=== PATIENT | male | born 1975 | race African-American/Black ===

== ENCOUNTER 2018-03-17 17:11 | Emergency (ER) | payer OTHER ==
[2018-03-17] MEDS ORDERED: DIPH,PERTUS(ACELL)TETVAC-LF 0.5 ML VIAL IM ONE (17:23)
[2018-03-17] MEDS ORDERED: diphenhydrAMINE 50 MG/ML 1 ML VIAL IVP STA (17:36)
[2018-03-17] MEDS ORDERED: HALOPERIDOL LACTATE 5 MG/ML 1 ML VIAL IM STA (17:36)
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
[2018-03-17 18:36] LABS: Basophils % (A) 0 %; Eosinophils # (A) 0.2 k/uL (0-0.7); Eosinophils % (A) 4 %; HGB 15.2 gm/dL (13.0-17.5); Lymphocytes # (A) 0.9 k/uL (1.0-4.8); Lymphocytes % (A) 16 %; MCH 29.2 pg (25.0-35.0); MCHC 33.8 g/dL (31.0-37.0); MCV 86.5 fL (80.0-100.0); Mean Platelet Volume 6.9; Monocytes # (A) 0.3 k/uL (0-1.0); Monocytes % (A) 5 %; Neutrophils # (A) 4.4 k/uL (1.3-7.7); Neutrophils % (A) 74 %; Platelet Count 259 k/uL (150-450); RBC 5.21 m/uL (4.30-5.90); RDW 12.7 % (11.5-15.5); WBC 5.9 k/uL (3.8-10.6)
[2018-03-17 18:47] LABS: ALT 63 U/L (21-72); AST 46 U/L (17-59); Albumin 4.5 g/dL (3.5-5.0); Alkaline Phosphatase 60 U/L (38-126); Anion Gap 16 mmol/L; Blood Urea Nitrogen 9 mg/dL (9-20); Calcium 9.2 mg/dL (8.4-10.2); Carbon Dioxide 22 mmol/L (22-30); Chloride 103 mmol/L (98-107); Glucose 94 mg/dL (74-99); Potassium 3.7 mmol/L (3.5-5.1); Sodium 141 mmol/L (137-145); Total Bilirubin 0.4 mg/dL (0.2-1.3); Total Protein 6.8 g/dL (6.3-8.2)
[2018-03-17 18:49] LABS: Alcohol 229 mg/dL
[2018-03-17 18:51] LABS: Prothrombin Time 9.9 sec (9.0-12.0)
[2018-03-17 18:53] LABS: Partial Thromboplastin Time 21.1 sec (22.0-30.0)
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
[2018-03-17 20:47] VITALS: BP 129/78; PULSE 77; RESP 18; TEMP 98
== END 2018-03-17 20:47 | disposition home or self-care (01) ==
LOC: EC 17:11
DX: S02.2XXA Fracture of nasal bones, initial encounter for closed fracture (principal); S01.511A Laceration without foreign body of lip, initial encounter; S09.93XA Unspecified injury of face, initial encounter; R45.5 Hostility; F17.200 Nicotine dependence, unspecified, uncomplicated; Z23 Encounter for immunization; Y00.XXXA Assault by blunt object, initial encounter; Y92.89 Other specified places as the place of occurrence of the external cause; Y90.7 Blood alcohol level of 200-239 mg/100 ml
CPT/HCPCS: 36415; 80053; 85025; 85610; 85730; 80320; 72125; 70486; 70450; 90715; 99285; 40650; 96374; 96372; 90471; J1200; J1630

== ENCOUNTER 2018-03-17 21:49 | Emergency (ER) | payer OTHER ==
[2018-03-17 21:55] VITALS: BP 118/75; PULSE 71; RESP 20; TEMP 98
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
== END 2018-03-17 22:07 | disposition home or self-care (01) ==
LOC: EC 21:49
DX: Z02.89 Encounter for other administrative examinations (principal); F17.200 Nicotine dependence, unspecified, uncomplicated
CPT/HCPCS: 99282

== ENCOUNTER 2020-11-02 16:08 | Observation (INO) | payer OTHER ==
[2020-11-02] MEDS ORDERED: NITROGLYCERIN OINT 1 INCH/GM PACKET TOPICAL STA (16:41)
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
[2020-11-02 16:59] LABS: Basophils % (A) 0 %; Eosinophils # (A) 0.1 k/uL (0-0.7); Eosinophils % (A) 2 %; HCT 43.3 % (39.0-53.0); HGB 15.2 gm/dL (13.0-17.5); Lymphocytes % (A) 13 %; MCH 28.9 pg (25.0-35.0); MCHC 35.2 g/dL (31.0-37.0); MCV 82.1 fL (80.0-100.0); Mean Platelet Volume 7.1; Monocytes # (A) 0.3 k/uL (0-1.0); Monocytes % (A) 5 %; Neutrophils # (A) 5.8 k/uL (1.3-7.7); Neutrophils % (A) 79 %; Platelet Count 239 k/uL (150-450); RBC 5.27 m/uL (4.30-5.90); RDW 12.4 % (11.5-15.5); WBC 7.3 k/uL (3.8-10.6)
--- NOTE | 2020-11-02 17:07 | XR ---
EXAMINATION TYPE: XR chest 2V DATE OF EXAM: 11/02/2020 COMPARISON: NONE HISTORY: Chest pain TECHNIQUE: FINDINGS: Heart and mediastinum are normal. Lungs are clear. Diaphragm is normal. Bony thorax appears normal. IMPRESSION: Normal chest. Normal heart.
[2020-11-02 17:08] LABS: ALT 42 U/L (4-49); AST 35 U/L (17-59); African American GFR (CKD) >90 (>60 ml/min/1.73 sqM); Albumin 4.2 g/dL (3.5-5.0); Alkaline Phosphatase 66 U/L (38-126); Anion Gap 7 mmol/L; Blood Urea Nitrogen 8 mg/dL (9-20); Calcium 9.1 mg/dL (8.4-10.2); Carbon Dioxide 25 mmol/L (22-30); Chloride 106 mmol/L (98-107); Glucose 157 mg/dL (74-99); Magnesium 1.8 mg/dL (1.6-2.3); Non-African American GFR(CKD) >90 (>60 ml/min/1.73 sqM); Sodium 138 mmol/L (137-145); Total Bilirubin 0.5 mg/dL (0.2-1.3); Total Protein 7.1 g/dL (6.3-8.2)
[2020-11-02 17:12] LABS: Prothrombin Time 10.3 sec (9.0-12.0)
[2020-11-02 17:28] LABS: Partial Thromboplastin Time 20.3 sec (22.0-30.0)
[2020-11-02] MEDS ORDERED: HEPARIN SODIUM,PORCINE 5,000 UNIT/ML 1 ML VIAL IV ONE (17:42)
[2020-11-02] MEDS ORDERED: HEPARIN SOD,PORK IN 0.45% NACL 25,000 UNIT in 0.45% NACL 1 250ML.BAG IV SCH (17:45)
[2020-11-02] MEDS ORDERED: NITROGLYCERIN SL TABS 0.4 MG TAB SUBLINGUAL PRN (17:45)
[2020-11-02] MEDS: NITROGLYCERIN OINT 1 INCH/GM PACKET TOPICAL SCH (18:14)
[2020-11-02] MEDS ORDERED: ACETAMINOPHEN TAB 500 MG TAB PO STA (18:56)
[2020-11-02] MEDS ORDERED: ACETAMINOPHEN TAB 325 MG TAB PO PRN (18:57)
[2020-11-02 22:45] VITALS: RESP 16
[2020-11-03] MEDS: NITROGLYCERIN OINT 1 INCH/GM PACKET TOPICAL SCH ×2 (01:20→05:48)
[2020-11-03 03:21] LABS: Cholesterol 169 mg/dL (<200); HDL Cholesterol 51 mg/dL (40-60); LDL Cholesterol,Calculated 92 mg/dL (0-99); Triglycerides 132 mg/dL (<150)
[2020-11-03] MEDS ORDERED: ASPIRIN 325 MG TAB PO SCH (09:00)
[2020-11-03] MEDS ORDERED: ASPIRIN 81 MG PO SCH (09:00)
--- NOTE | 2020-11-03 10:34 | P.CRDCN ---
History of Present Illness History of present illness: CHIEF COMPLAINT: Chest pain HISTORY OF PRESENT ILLNESS: This is a 45-year-old male with a past medical history significant for nicotine dependence. Patient does not follow with a acid conditioner. We have been asked to see the patient in consultation for chest pain. Patient is currently incarcerated. He was examined at the bedside with a shift present. Patient states yesterday he began having a squeezing/pinching sensation in the left side of his chest while he was laying down. He states the pain radiated into his left arm. He reports feeling nauseated, short of breath, and lightheaded at that time. He states the pain was worse with exertion. He denied increased pain with inspiration or palpation of chest wall. At the time of examination this morning, the patient is chest pain-free. The patient reports significant family history of heart disease. He states his dad had a heart attack and when he was in his 60s. He reports his mom and sister had stents placed before the age of 60. DIAGNOSTICS: EKG reveals sinus rhythm with no signs of acute ischemia Chest xray negative for acute process Laboratory data: WBC 7.3. Hemoglobin 15.2. Platelet count 239. Sodium 138. Potassium 4.0. BUN 8. Creatinine 0.95. Magnesium 1.8. Troponin negative 3 Current home cardiac medications include none REVIEW OF SYSTEMS: At the time of my exam: CONSTITUTIONAL: Denies fever or chills. HEENT: Denies blurred vision, vision changes, or eye pain. Denies hemoptysis CARDIOVASCULAR: Denies chest pain, orthopnea, PND or palpitations RESPIRATORY: No shortness of breath. GASTROINTESTINAL: Denies abdominal pain. Denies nausea or vomiting. HEMATOLOGIC: Denies bleeding disorders. GENITOURINARY: Denies any blood in urine. SKIN: Denies pruitis. Denies rash. PHYSICAL EXAM: VITAL SIGNS: Reviewed. GENERAL: Well-developed in no acute distress. HEENT: Head is normocephalic. Pupils are equal, round. Sclerae anicteric. Mucous membranes of the mouth are moist. Neck supple. No JVD or thyromegaly LUNGS: Respirations even and unlabored. Lungs essentially clear to auscultation bilaterally. HEART: Regular rate and rhythm. S1 and S2 heard. ABDOMEN: Soft. Nondistended. Nontender. EXTREMITIES: Normal range of motion. No clubbing or cyanosis. Peripheral pulses intact. No lower extremity edema NEUROLOGIC: Awake and alert. Oriented x 3. ASSESSMENT: Chest pain, troponins negative 3 Nicotine dependence Family history of premature coronary artery disease PLAN: Discontinue IV heparin Discontinue nitro Obtain 2-D echo to assess cardiac structure and function Patient to undergo stress echocardiogram today to assess for reversible ischemia. If stress test is negative, the patient may be discharged today from a cardiac standpoint. Nurse practitioner note has been reviewed by physician. Signing provider agrees with the documented findings, assessment, and plan of care. Past Medical History Past Medical History: No Reported History History of Any Multi-Drug Resistant Organisms: None Reported Past Surgical History: No Surgical Hx Reported Past Anesthesia/Blood Transfusion Reactions: No Reported Reaction Past Psychological History: No Psychological Hx Reported Smoking Status: Current every day smoker Past Alcohol Use History: Abuse, Daily, Heavy Past Drug Use History: Cocaine, Marijuana Medications and Allergies Home Medications Medication Instructions Recorded Confirmed Type No Known Home Medications 11/02/20 11/02/20 History Allergies Allergy/AdvReac Type Severity Reaction Status Date / Time No Known Allergies Allergy Verified 11/02/20 18:28 Physical Exam Vitals: Vital Signs Temp Pulse Pulse Pulse Resp BP BP 11/03/20 08:09 98.0 F 54 L 16 127/83 11/03/20 03:00 97.8 F 56 L 16 113/69 11/02/20 21:00 98.6 F 74 16 114/57 11/02/20 18:16 98 F 68 18 105/60 11/02/20 18:13 98.2 F 67 16 105/62 11/02/20 17:08 72 18 117/60 11/02/20 16:21 98.2 F 75 18 124/78 Pulse Ox 11/03/20 08:09 100 11/03/20 03:00 100 11/02/20 21:00 98 11/02/20 18:16 100 11/02/20 18:13 100 11/02/20 17:08 100 11/02/20 16:21 100 Intake and Output 11/02/20 11/03/20 11/03/20 22:59 06:59 14:59 Intake Total 10 87.167 Balance 10 87.167 Intake: Intake, IV Titration 10 87.167 Amount Heparin Sod,Pork in 0.45% 10 87.167 NaCl 25,000 unit In 0.45 % NaCl 1 250ml.bag @ 11. 023 UNITS/KG/HR 10 mls/hr IV .Q24H [facility] Rx#: [id number] Other: Voiding Method Toilet Toilet # Voids 1 1 Weight 90.718 kg Results 11/02/20 16:47 11/02/20 16:47 Cardiac Enzymes 11/02/20 11/02/20 11/02/20 Range/Units 16:47 16:47 19:39 AST 35 (17-59) U/L Troponin I <0.012 <0.012 (0.000-0.034) ng/mL 11/02/20 Range/Units 23:57 AST (17-59) U/L Troponin I <0.012 (0.000-0.034) ng/mL Coagulation 11/02/20 11/02/20 Range/Units 16:47 23:57 PT 10.3 (9.0-12.0) sec APTT 20.3 L 59.5 H (22.0-30.0) sec Lipids 11/02/20 Range/Units 16:47 Triglycerides 132 (<150) mg/dL Cholesterol 169 (<200) mg/dL HDL Cholesterol 51 (40-60) mg/dL CBC 11/02/20 Range/Units 16:47 WBC 7.3 (3.8-10.6) k/uL RBC 5.27 (4.30-5.90) m/uL Hgb 15.2 (13.0-17.5) gm/dL Hct 43.3 (39.0-53.0) % Plt Count 239 (150-450) k/uL Comprehensive Metabolic Panel 11/02/20 Range/Units 16:47 Sodium 138 (137-145) mmol/L Potassium 4.0 (3.5-5.1) mmol/L Chloride 106 (98-107) mmol/L Carbon Dioxide 25 (22-30) mmol/L BUN 8 L (9-20) mg/dL Creatinine 0.95 (0.66-1.25) mg/dL Glucose 157 H (74-99) mg/dL Calcium 9.1 (8.4-10.2) mg/dL AST 35 (17-59) U/L ALT 42 (4-49) U/L Alkaline Phosphatase 66 (38-126) U/L Total Protein 7.1 (6.3-8.2) g/dL Albumin 4.2 (3.5-5.0) g/dL Current Medications Generic Name Dose Route Start Last Admin Trade Name Freq PRN Reason Stop Dose Admin Acetaminophen 650 mg 11/02/20 18:57 Acetaminophen Tab 325 Mg Tab PO Q4HR PRN Fever and/ or Pain Aspirin 81 mg 11/03/20 09:00 11/03/20 08:12 Aspirin 81 Mg PO 81 mg DAILY TORIE Administration Nitroglycerin 0.4 mg 11/02/20 17:45 Nitroglycerin Sl Tabs 0.4 Mg Tab SUBLINGUAL Q5M PRN Chest Pain Intake and Output 11/02/20 11/03/20 11/03/20 22:59 06:59 14:59 Intake Total 10 87.167 Balance 10 87.167 Intake: Intake, IV Titration 10 87.167 Amount Heparin Sod,Pork in 0.45% 10 87.167 NaCl 25,000 unit In 0.45 % NaCl 1 250ml.bag @ 11. 023 UNITS/KG/HR 10 mls/hr IV .Q24H [facility] Rx#: [id number] Other: Voiding Method Toilet Toilet # Voids 1 1 Weight 90.718 kg 11/02/20 16:47 11/02/20 16:47
[2020-11-03 14:59] VITALS: BP 131/83; PULSE 70; TEMP 98.3
--- NOTE | 2020-11-03 17:48 | P.STRESS ---
- Stress Test Note Stress Test Results/Findings: Exam Performed: stress echo exercise Exam Date: 11/03/20 Reason for Exam: CP Height: 5 ft 9 in Weight: 90.72 kg Protocol: STRESS ECHO Stage: 4 Duration of Exercise: 9:33 Resting Heart Rate: 58 Resting Blood Pressure: 129/84 Maximum Achieved Heart Rate: 143 Maximum Achieved Blood Pressure: 184/83 85% PMHR: 150 100% PMHR: 176 METS: 11.1 Technologist Comment: Stress Test Results/Findings: Baseline heart rate 58 beats a minute, Baseline blood pressure 129/84 mmHg Baseline 12-lead ECG shows sinus rhythm normal [place] narrow QRS normal ST segments Patient exercised on a Oliver protocol for 9 minutes 33 seconds achieving a peak heart rate of 117 beats a minute. Normal blood pressure response to exercise There was no ECG evidence of ischemia Baseline 2-D echo may showed normal LV systolic function without segmental wall motion abnormalities. Definity contrast was used At peak exercise there was excellent augmentation of overall LV contractility without development only for motion abnormalities At recovery reason for clinic systolic function remained normal Impression Good exercise capacity No ECG or echocardiographic evidence for ischemia
--- NOTE | 2020-11-03 18:43 | ECHOF ---
Referral Reason:chest pain MEASUREMENTS -------- HEIGHT: 175.3 cm WEIGHT: 90.7 kg BP: 113/69 IVSd: 1.0 cm (0.6 - 1.1) LVIDd: 4.8 cm (3.9 - 5.3) LVPWd: 0.9 cm (0.6 - 1.1) IVSs: 1.5 cm LVIDs: 3.1 cm LVPWs: 1.8 cm LA Diam: 3.7 cm (2.7 - 3.8) RVIDd: 3.1 cm (< 3.3) LAESV Index (A-L): 25.07 ml/m Ao Diam: 2.9 cm (2.0 - 3.7) AV Cusp: 2.1 cm (1.5 - 2.6) EPSS: 0.6 cm MV E Theron: 0.85 m/s MV DecT: 243 ms MV A Theron: 0.84 m/s MV E/A Ratio: 1.02 RAP: 5.00 mmHg RVSP: 21.84 mmHg MV EF SLOPE: 129.59 mm/s (70 - 150) MV EXCURSION: 18.22 mm (> 18.000) FINDINGS -------- Sinus rhythm. This was a technically good study. The left ventricular size is normal. Left ventricular wall thickness is normal. Overall left vent ricular systolic function is normal with, an EF between 60 - 65 %. The right ventricle is normal in size. Normal LA size by volume 22+/-6 ml/m2. The right atrium is normal in size. Interatrial and interventricular septum intact. The aortic valve is trileaflet and appears structurally normal. There is trace mitral regurgitation. The tricuspid valve appears structurally normal. Trace/mild (physiologic) pulmonic regurgitation. The aortic root size is normal. Normal inferior vena cava with normal inspiratory collapse consistent with estimated right atrial pre ssure of 5 mmHg. The inferior vena cava is mildly dilated. There is no pericardial effusion. CONCLUSIONS -------- 1. The left ventricular size is normal. 2. Left ventricular wall thickness is normal. 3. Overall left ventricular systolic function is normal with, an EF between 60 - 65 %. 4. There is trace mitral regurgitation. 5. Trace/mild (physiologic) pulmonic regurgitation. 6. The inferior vena cava is mildly dilated. 7. There is no pericardial effusion. FINISHED GOODS STOCK CLERK: Jessica Steele RDCS
--- NOTE | 2020-11-07 08:25 | P.HPIM ---
History of Present Illness H&P Date: 11/03/20 Chief Complaint: chest pain Lewis Vanegas is a 45 yo M with PMH for tobacco abuse who presented to the ED after he noticed a squeezing/pinching sensation in the left side of his chest while he was laying down. Patient is currently incarcerated. Pt states yesterday he was resting when he noticed this discomfort, He states the pain radiated into his left arm. He reports feeling nauseated, short of breath, and lightheaded at that time. He denied increased pain with inspiration or palpation of chest wall. At the time of examination this morning, the patient is chest pain-free. The patient reports significant family history of heart disease. He states his dad had a heart attack and when he was in his 60s. He reports his mom and sister had stents placed before the age of 60. On presentation his vitals were stable, EKG NSR and trop negative x3. Review of Systems All systems: negative Constitutional: Denies chills, Denies fever Eyes: denies blurred vision, denies pain Ears, nose, mouth and throat: Denies headache, Denies sore throat Cardiovascular: Reports chest pain, Denies shortness of breath Respiratory: Denies cough Gastrointestinal: Denies abdominal pain, Denies diarrhea, Denies nausea, Denies vomiting Musculoskeletal: Denies myalgias Integumentary: Denies pruritus, Denies rash Neurological: Denies numbness, Denies weakness Psychiatric: Denies anxiety, Denies depression Endocrine: Denies fatigue, Denies weight change Past Medical History Past Medical History: No Reported History History of Any Multi-Drug Resistant Organisms: None Reported Past Surgical History: No Surgical Hx Reported Past Anesthesia/Blood Transfusion Reactions: No Reported Reaction Past Psychological History: No Psychological Hx Reported Smoking Status: Current every day smoker Past Alcohol Use History: Abuse, Daily, Heavy Past Drug Use History: Cocaine, Marijuana Medications and Allergies Home Medications Medication Instructions Recorded Confirmed Type No Known Home Medications 11/02/20 11/02/20 History Allergies Allergy/AdvReac Type Severity Reaction Status Date / Time No Known Allergies Allergy Verified 11/02/20 18:28 Physical Exam General: well developed, well nourished male in NAD HEENT: normocephalic, atraumatic, mucus membranes moist CV: RRR, no murmur Lungs: clear throughout, normal effort Abd: soft, nontender, non distended Neuro: alert and oriented x3 Skin: warm and dry Results CBC & Chem 7: 11/02/20 16:47 11/02/20 16:47 Thrombosis Risk Factor Assmnt - Choose All That Apply Each Factor Represents 1 point: Age 41-60 years Thrombosis Risk Factor Assessment Total Risk Factor Score: 1 Thrombosis Risk Factor Assessment Level: Low Risk Assessment and Plan (1) Unstable angina pectoris Status: Acute Code(s): I20.0 - UNSTABLE ANGINA SNOMED Code(s): 4363124 Plan: 1. Chest pain. ACS ruled out. Cardiology consulted for further evaluation. Stress test pending
--- NOTE | 2020-11-07 08:27 | P.DS ---
Providers Date of admission: 11/02/20 17:45 Expected date of discharge: 11/03/20 Attending physician: Andrea Anders MD Consults: 11/02/20 17:45 Consult Physician Urgent Consulting Provider: [facility] Consult Reason/Comments: Unstable angina Do you want consulting provider notified?: Yes Primary care physician: Chantell Anders - Discharge Diagnosis(es) (1) Unstable angina pectoris Status: Acute Hospital Course: Lewsi Vanegas is a 45 yo M with PMH for tobacco abuse who presented to the ED after he noticed a squeezing/pinching sensation in the left side of his chest while he was laying down. Patient is currently incarcerated. Pt states yesterday he was resting when he noticed this discomfort, He states the pain radiated into his left arm. He reports feeling nauseated, short of breath, and lightheaded at that time. He denied increased pain with inspiration or palpation of chest wall. At the time of examination this morning, the patient is chest pain-free. The patient reports significant family history of heart disease. He states his dad had a heart attack and when he was in his 60s. He reports his mom and sister had stents placed before the age of 60. On presentation his vitals were stable, EKG NSR and trop negative x3. Pt was admitted to medicine and seen by Cardiology. He did undergo stress test and echo which were negative for ischemic changes. He is discharged in stable condition and recommended to follow up with his physician and tobacco cessation counseling is encouraged. Plan - Discharge Summary Discharge Rx Participant: No New Discharge Prescriptions: No Action No Known Home Medications Discharge Medication List No Known Home Medications 11/02/20 [History] Follow up Appointment(s)/Referral(s): Josh Song MD [STAFF PHYSICIAN] - 2 Weeks Chantell Anders DO [Primary Care Provider] - 1-2 days Discharge Disposition: OTHER INSTITUTION NOT DEFINED
--- NOTE | 2020-11-07 09:04 | ECHOS ---
Stress Test Results/Findings: Exam Performed: stress echo exercise Exam Date: 11/03/20 Reason for Exam: CP Height: 5 ft 9 in Weight: 90.72 kg Protocol: STRESS ECHO Stage: 4 Duration of Exercise: 9:33 Resting Heart Rate: 58 Resting Blood Pressure: 129/84 Maximum Achieved Heart Rate: 143 Maximum Achieved Blood Pressure: 184/83 85% PMHR: 150 100% PMHR: 176 METS: 11.1 Technologist Comment: Stress Test Results/Findings: Baseline heart rate 58 beats a minute, Baseline blood pressure 129/84 mmHg Baseline 12-lead ECG shows sinus rhythm normal [place] narrow QRS normal ST segments Patient exercised on a Oliver protocol for 9 minutes 33 seconds achieving a peak heart rate of 117 beats a minute. Normal blood pressure response to exercise There was no ECG evidence of ischemia Baseline 2-D echo may showed normal LV systolic function without segmental wall motion abnormalities. Definity contrast was used At peak exercise there was excellent augmentation of overall LV contractility without development only for motion abnormalities At recovery reason for clinic systolic function remained normal Impression Good exercise capacity No ECG or echocardiographic evidence for ischemia MTDD
== END 2020-11-03 18:11 | disposition other institution (70) ==
LOC: EC 16:08 → SUPCPDRO 16:08 → 1SOBS 17:45
PROVIDERS: ADMIT Family Medicine; ATTEND Family Medicine
DX: I20.0 Unstable angina (principal); F17.200 Nicotine dependence, unspecified, uncomplicated; Z82.49 Family history of ischemic heart disease and other diseases of the circulatory system; F10.11 Alcohol abuse, in remission
CPT/HCPCS: 93005 ×2; 96366 ×2; 96376; 96365; 99291; 36415; 93306; 93351; 80061; 80053; 83735; 84484; 85025; 85610; 85730; 71046; G0378 ×2; J1644 ×2

== ENCOUNTER 2023-12-12 10:57 | Emergency (ER) | payer BC, OTHER ==
[2023-12-12 11:32] VITALS: RESP 18
--- NOTE | 2023-12-12 11:47 | XR ---
EXAMINATION TYPE: XR chest 2V DATE OF EXAM: 12/12/2023 11:32 AM CLINICAL INDICATION:Male, 48 years old with history of cough; COMPARISON: Chest radiographs from 11/02/2020. TECHNIQUE: XR chest 2V Frontal and lateral views of the chest. FINDINGS: Lungs/Pleura: There is no evidence of pleural effusion, focal consolidation, or pneumothorax. Pulmonary vascularity: Unremarkable. Heart/mediastinum: Cardiomediastinal silhouette is unremarkable. Musculoskeletal: No acute osseous pathology. Other findings: None IMPRESSION: No acute cardiopulmonary disease/process.
--- NOTE | 2023-12-12 11:59 | ED ---
URI HPI - General Chief Complaint: Upper Respiratory Infection Stated Complaint: Cough, flu like symptoms Time Seen by Provider: 12/12/23 11:25 Source: patient, RN notes reviewed Mode of arrival: ambulatory Limitations: no limitations - History of Present Illness Initial Comments: This is a 48-year-old male who presents to the emergency department for co ughing, congestion, and shortness of breath. Symptoms started 2-3 weeks ago. For about a week he has been on steroids and azithromycin, with no improvement in symptoms. States that he is now coughing so much that he makes himself vomit. Denies any fevers or chills. Denies any history of asthma, COPD, or other respiratory illnesses. MD Complaint: cough, nasal congestion - Related Data Previous Rx's Medication Instructions Recorded Albuterol Sulfate [Albuterol 1 puff PO Q4-6H PRN #8.5 gm 12/12/23 Sulfate Hfa] Benzonatate [Tessalon Perle] 200 mg PO TID PRN #30 capsule 12/12/23 Ondansetron Odt [Zofran Odt] 4 mg PO Q8HR PRN #15 tab 12/12/23 Allergies Allergy/AdvReac Type Severity Reaction Status Date / Time No Known Allergies Allergy Verified 12/12/23 11:10 Review of Systems ROS Statement: Those systems with pertinent positive or pertinent negative responses have been documented in the HPI. ROS Other: All systems not noted in ROS Statement are negative. Past Medical History Past Medical History: No Reported History History of Any Multi-Drug Resistant Organisms: None Reported Past Surgical History: No Surgical Hx Reported Past Anesthesia/Blood Transfusion Reactions: No Reported Reaction Past Psychological History: No Psychological Hx Reported Smoking Status: Current every day smoker Past Alcohol Use History: Abuse, Daily, Heavy Past Drug Use History: None Reported General Exam Limitations: no limitations General appearance: alert, in no apparent distress Head exam: Present: atraumatic, normocephalic, normal inspection Respiratory exam: Present: normal lung sounds bilaterally. Absent: respiratory distress, wheezes, rales, rhonchi, stridor Cardiovascular Exam: Present: regular rate, normal rhythm, normal heart sounds. Absent: systolic murmur, diastolic murmur, rubs, gallop, clicks Neurological exam: Present: alert, oriented X3, CN II-XII intact Psychiatric exam: Present: normal affect, normal mood Skin exam: Present: warm, dry, intact, normal color. Absent: rash Course Vital Signs 12/12/23 12/12/23 11:06 12:51 Temperature 98.6 F 98.9 F Pulse Rate 87 75 Respiratory 18 18 Rate Blood Pressure 126/76 154/83 O2 Sat by Pulse 97 97 Oximetry Medical Decision Making - Medical Decision Making This is a 48-year-old male who presents to the emergency department for coughing and congestion. Was pt. sent in by a medical professional or institution? @ -No Did you speak to anyone other than the patient for history? @ -No Did you review nursing and triage notes? @ -Yes, and I agree, it is accurate with regards to the patient's symptoms. Were old charts reviewed? @ -No Differential Diagnosis? @ -Differential Cough: Influenza, Covid, RSV, croup, allergic rhinitis, GERD, pneumonia, bronchitis, COPD, viral pharyngitis, streptococcal pharyngitis, this is not meant to be an all-inclusive list. EKG interpreted by me (3pts min.)? @ -Not obtained X-rays interpreted by me (1pt min.)? @ -Chest x-ray obtained, my interpretation identifies no localized consolidatio ns or infiltrates. CT interpreted by me (1pt min.)? @ -Not obtained U/S interpreted by me (1pt. min.)? @ -Not obtained What testing was considered but not performed? (CT, X-rays, U/S, labs)? Why? @ -None What meds were considered but not given? Why? @ -None Did you discuss the management of the patient with other professionals? @ -No Did you reconcile home meds? @ -No Was smoking cessation discussed for >3mins.? @ -I discussed smoking cessation for greater than 3 minutes. The risk of smoking were discussed with the patient including but not limited to risks of cancer, stroke, coronary artery disease and COPD. Also discussed with patient were multiple methods of quitting smoking. Lastly we discussed the financial cost of smoking. Was critical care preformed (if so, how long)? @ -No Were there social determinants of health that impacted care today? How? (Homelessness, low income, unemployed, alcoholism, drug addiction, transportation, low edu. Level, literacy, decrease access to med. care, long-term, rehab)? @ -No Was there de-escalation of care discussed even if they declined? (Discuss DNR or withdrawal of care, Hospice)? @ -No What co-morbidities impacted this encounter? (DM, HTN, Smoking, COPD, CAD, Cancer, CVA, Hep., AIDS, mental health diagnosis, sleep apnea, morbid obesity)? @ -Smoking Was patient admitted / discharged? @ -Discharged. Patient positive for influenza A. He is out of the timeframe when Tamiflu can be prescribed. I did offer a DuoNeb breathing treatment, however the patient declined. He was given Zofran and Tessalon Perles for symptomatic control. Prescription for albuterol inhaler, Tessalon Perles, and Zofran provided with dosing instructions reviewed. Patient discharged home in stable condition. Advised getting plenty of rest and remaining well-hydrated. Undiagnosed new problem with uncertain prognosis? @ -None Drug Therapy requiring intensive monitoring for toxicity (Heparin, Nitro, Insulin, Cardizem)? @ -None Were any procedures done? @ -None Diagnosis/symptom? @ -Influenza A Acute, or Chronic, or Acute on Chronic? @ -Acute Uncomplicated (without systemic symptoms) or Complicated (systemic symptoms)? @ -Uncomplicated Side effects of treatment? @ -None Exacerbation, Progression, or Severe Exacerbation] @ -Not applicable Poses a threat to life or bodily function? @ -No Return precautions reviewed in depth, the patient is instructed to return to the emergency department with any new, worsening, or concerning symptoms. Patient verbalized understanding. This case was discussed in detail with the attending ED physician, Dr. Estevez. Presentation, findings, and treatment plan discussed in detail as well. - Lab Data Lab Results 12/12/23 Range/Units 11:13 Influenza Type A (PCR) Detected A (Not Detectd) Influenza Type B (PCR) Not Detected (Not Detectd) RSV (PCR) Not Detected (Not Detectd) SARS-CoV-2 (PCR) Not Detected (Not Detectd) - Radiology Data Radiology results: report reviewed, image reviewed Disposition Clinical Impression: Influenza A, Nicotine dependence Disposition: HOME SELF-CARE Instructions (If sedation given, give patient instructions): Influenza (ED) Additional Instructions: Return to the emergency department with any new, worsening, or concerning symptoms. You can use the tessalon perles cough medication up to 3 times daily. You can take the Zofran up to every 8 hours as needed for nausea and vomiting. Use the albuterol inhaler every 4-6 hours as needed for coughing and shortness of breath. Follow up with your primary care provider in 1-2 days. Prescriptions: Albuterol Sulfate [Albuterol Sulfate Hfa] 1 puff PO Q4-6H PRN #8.5 gm PRN Reason: Shortness Of Breath Benzonatate [Tessalon Perle] 200 mg PO TID PRN #30 capsule PRN Reason: Cough Ondansetron Odt [Zofran Odt] 4 mg PO Q8HR PRN #15 tab PRN Reason: Nausea And Vomiting Is patient prescribed a controlled substance at d/c from ED?: No Referrals: [facility] [Primary Care Provider] - 1-2 days Time of Disposition: 12:30
[2023-12-12] MEDS: ONDANSETRON ODT 4 MG TAB PO STA (12:04)
[2023-12-12] MEDS: BENZONATATE 100 MG CAP PO STA (12:05)
[2023-12-12] MEDS: IPRATROPIUM-ALBUTEROL 3 ML NEB INHALATION STA (12:32)
[2023-12-12 13:04] VITALS: BP 154/83; PULSE 75; TEMP 98.9
== END 2023-12-12 12:51 | disposition home or self-care (01) ==
LOC: EC 10:57
DX: J10.1 Influenza due to other identified influenza virus with other respiratory manifestations (principal); F17.210 Nicotine dependence, cigarettes, uncomplicated; Z20.822 Contact with and (suspected) exposure to COVID-19
CPT/HCPCS: 71046; 87636; 99283; 99406

== ENCOUNTER 2023-12-17 10:26 | Emergency (ER) | payer OTHER ==
[2023-12-17 11:06] VITALS: BP 121/82; PULSE 85; RESP 16; TEMP 98.1
--- NOTE | 2023-12-17 11:08 | ED ---
URI HPI - General Chief Complaint: Upper Respiratory Infection Stated Complaint: flu Time Seen by Provider: 12/17/23 10:47 Source: patient, RN notes reviewed Mode of arrival: ambulatory Limitations: no limitations - History of Present Illness Initial Comments: 48-year-old male presents emergency department for cough and congestion, work note. Patient was seen here few days ago diagnosed with influenza. Patient states he needs a work note and return to work. Patient states he is improving, fevers have resolved. - Related Data Previous Rx's Medication Instructions Recorded Albuterol Sulfate [Albuterol 1 puff PO Q4-6H PRN #8.5 gm 12/12/23 Sulfate Hfa] Benzonatate [Tessalon Perle] 200 mg PO TID PRN #30 capsule 12/12/23 Ondansetron Odt [Zofran Odt] 4 mg PO Q8HR PRN #15 tab 12/12/23 Allergies Allergy/AdvReac Type Severity Reaction Status Date / Time No Known Allergies Allergy Verified 12/12/23 11:10 Review of Systems ROS Statement: Those systems with pertinent positive or pertinent negative responses have been documented in the HPI. ROS Other: All systems not noted in ROS Statement are negative. Past Medical History Past Medical History: No Reported History History of Any Multi-Drug Resistant Organisms: None Reported Past Surgical History: No Surgical Hx Reported Past Anesthesia/Blood Transfusion Reactions: No Reported Reaction Past Psychological History: No Psychological Hx Reported Smoking Status: Current every day smoker Past Alcohol Use History: Abuse, Daily, Heavy Past Drug Use History: None Reported General Exam Limitations: no limitations General appearance: alert, in no apparent distress Head exam: Present: atraumatic, normocephalic, normal inspection ENT exam: Present: normal exam, mucous membranes moist Neck exam: Present: normal inspection. Absent: tenderness, meningismus, lymphadenopathy Respiratory exam: Present: normal lung sounds bilaterally. Absent: respiratory distress, wheezes, rales, rhonchi, stridor Cardiovascular Exam: Present: regular rate, normal rhythm, normal heart sounds. Absent: systolic murmur, diastolic murmur, rubs, gallop, clicks Course Vital Signs 12/17/23 10:39 Temperature 98.1 F Pulse Rate 85 Respiratory 16 Rate Blood Pressure 121/82 O2 Sat by Pulse 98 Oximetry Medical Decision Making - Medical Decision Making Was pt. sent in by a medical professional or institution ([facility], [facility], urgent care, hospital, or long term...) When possible be specific @ -No Did you speak to anyone other than the patient for history (EMS, parent, family, police, friend...)? What history was obtained from this source @ -No Did you review nursing and triage notes (agree or disagree)? Why? @ -I reviewed and agree with nursing and triage notes Were old charts reviewed (outside hosp., previous admission, EMS record, old EKG, old radiological studies, urgent care reports/EKG's, long term records)? Report findings @ -Recent laboratory testing Differential Diagnosis (chest pain, altered mental status, abdominal pain women, abdominal pain men, vaginal bleeding, weakness, fever, dyspnea, syncope, headache, dizziness, GI bleed, back pain, seizure, CVA, palpatations, mental health, musculoskeletal)? @ -[Influenza, URI EKG interpreted by me (3pts min.). @ -None X-rays interpreted by me (1pt min.). @ -[None done CT interpreted by me (1pt min.). @ -None done U/S interpreted by me (1pt. min.). @ -None done What testing was considered but not performed or refused? (CT, X-rays, U/S, labs)? Why? @ -None What meds were considered but not given or refused? Why? @ -None Did you discuss the management of the patient with other professionals (professionals i.e. [facility], [facility], lab, RT, psych nurse, school social worker, fairing worker, teacher, vessel traffic officer, community case manager)? Give summary @ -No Was smoking cessation discussed for >3mins.? @ -No Was critical care preformed (if so, how long)? @ -No Were there social determinants of health that impacted care today? How? (Homelessness, low income, unemployed, alcoholism, drug addiction, transportation, low edu. Level, literacy, decrease access to med. care, snf, rehab)? @ -No Was there de-escalation of care discussed even if they declined (Discuss DNR or withdrawal of care, Hospice)? DNR status @ -No What co-morbidities impacted this encounter? (DM, HTN, Smoking, COPD, CAD, Cancer, CVA, ARF, Chemo, Hep., AIDS, mental health diagnosis, sleep apnea, morbid obesity)? @ -None Was patient admitted / discharged? Hospital course, mention meds given and route, prescriptions, significant lab abnormalities, going to OR and other pertinent info. @ -[Discharge patient is influenza A positive patient symptoms have resolved patient was given a work note. Undiagnosed new problem with uncertain prognosis? @ -No Drug Therapy requiring intensive monitoring for toxicity (Heparin, Nitro, Insulin, Cardizem)? @ -No Were any procedures done? @ -No Diagnosis/symptom? @ -Influenza Acute, or Chronic, or Acute on Chronic? @ -[Acute Uncomplicated (without systemic symptoms) or Complicated (systemic symptoms)? @ -Uncomplicated Side effects of treatment? @ -No Exacerbation, Progression, or Severe Exacerbation? @ -No Poses a threat to life or bodily function? How? (Chest pain, [place], [place], pneumonia, PE, COPD, DKA, ARF, appy, cholecystitis, CVA, Diverticulitis, Homicidal, Suicidal, threat to staff... and all critical care pts) @ -No Disposition Clinical Impression: Influenza Disposition: HOME SELF-CARE Condition: Stable Additional Instructions: Please return to the Emergency Department if symptoms worsen or any other concerns. Is patient prescribed a controlled substance at d/c from ED?: No Referrals: [facility] [Primary Care Provider] - 1-2 days Time of Disposition: 11:08
== END 2023-12-17 11:19 | disposition home or self-care (01) ==
LOC: EC 10:26
DX: J10.1 Influenza due to other identified influenza virus with other respiratory manifestations (principal); F17.200 Nicotine dependence, unspecified, uncomplicated
CPT/HCPCS: 99284